=== PATIENT | male | born 1990 | race Caucasian/White ===

== ENCOUNTER 2017-04-29 18:32 | Emergency (ER) | payer OTHER ==
[~2017-04-29] VITALS: Ht 195.6 cm; Wt 127.3 kg
[2017-04-29 18:56] VITALS: BP 119/75; PULSE 106; RESP 30; O2SAT 98
--- NOTE | 2017-04-29 19:26 | ED.REPORT ---
HPI-General Illness Date of Service Apr 29, 2017 ED Provider: Candelario Solano MD Patient is an otherwise healthy 27 year old male who presents to the ED via EMS complaining of rectal pain onset 3 days ago. Associated symptoms include fever ( 101.6) and dizziness. He denies vomiting, abdominal pain, hematochezia, or any other symptoms. He was seen at the [facility] and given a cream with nitroglycerine but it has not been helping. They thought he might have an anal fissure. Nursing Notes Stated Complaint: RECTAL PAIN Chief Complaint: General Complaint Nursing Notes Reviewed: Yes Allergies: Coded Allergies: Penicillins (Verified Allergy, Unknown, 08/14/14) Sulfa (Sulfonamide Antibiotics) (Verified Allergy, Unknown, 08/14/14) TAPE (Verified Allergy, Unknown, 04/29/17) zolpidem (Verified Allergy, Unknown, hallucinations, 04/29/17) Uncoded Allergies: ANTIBIOTICS (Allergy, Unknown, 08/14/14) Scheduled Clindamycin (Clindamycin) 300 Mg Capsule 300 MG PO QID Scheduled PRN Docusate Sodium (Docusate Sodium) 250 Mg Capsule 250 MG PO BID PRN PRN For Constipation Hydrocodone-Acetaminophen 5-325 mg (Hydrocodone-Acetaminophen 5-325 mg) 1 Each Tablet 1 TABLET PO Q4H PRN PRN For Pain General Time Seen by MD: 19:11 Chief Complaint Other (Rectal pain ) Hx Obtained From: Patient Arrived By: Ambulance Sudden in Onset?: Yes Onset Occurred: 3 days ago Symptom Duration: Since onset Recent Healthcare: Recent doctor visit Past Medical History Past Medical History Denies Past Surgical History R shoulder x2 back Smoking History Unknown if Ever Smoker Social History Drug Use: Denies drug use Ambulatory Status Independent Review of Systems +rectal pain Full Review of Systems Constitutional: Reports: Fever GI: Denies: Abdominal pain, Hematochezia, Vomiting Neurologic: Reports: Dizziness Complete sys rev & neg: except as marked. Physical Exam Vital Signs Vital Signs Date Time Temp Pulse Resp B/P Pulse Ox O2 Delivery O2 Flow Rate FiO2 04/29/17 22:15 37.2 17 122/80 97 Room Air 04/29/17 21:09 38.2 102 16 133/76 97 Room Air 04/29/17 18:56 36.7 106 30 119/75 98 Room Air Initial VS: Reviewed Head / Eyes: Atraumatic, Normocephalic Neck: Full range of motion Respiratory: No respiratory distress Skin: Warm, Dry Neurologic: Alert, Oriented, Nonfocal Psychiatric: Mood/affect normal, Behavior normal, Normal thought content General/Constitutional: Awake, Alert, Well developed Distress / Hydration: Positive: Distress moderate Abdomen: Atraumatic, Soft, Non-tender Rectum / Perineum: No gross blood, No fissures, No mass No abscess or surrounding erythema Tender at 12 O'clock Interpretation & Diagnostics Lab Results Interpretation Result Diagram: 04/29/17195104/29/171951 Test 04/29/17 19:52 White Blood Count 15.7th/mm3 (3.8-10.1) Red Blood Count 5.39mil/mm3 (4.40-5.80) Hemoglobin 15.4g/dL (13.8-17.2) Hematocrit 44.8% (41.0-50.0) Mean Corpuscular Volume 83.1fL (81-100) Mean Corpuscular Hemoglobin 28.6pg (27.0-35.0) Mean Corpuscular Hemoglobin Concent 34.4% (32.0-37.0) Red Cell Distribution Width 13.3% (12.3-15.4) Platelet Count 233bil/L (150-400) Neutrophils (%) (Auto) 79.2% (40-74) Lymphocytes (%) (Auto) 11.9% (14-46) Monocytes (%) (Auto) 7.4% (4-12) Eosinophils (%) (Auto) 1.1% (0-5) Basophils (%) (Auto) 0.3% (0-3) Sodium Level 139mEq/L (134-144) Potassium Level 3.5mEq/L (3.5-5.2) Chloride Level 101mEq/L (97-108) Carbon Dioxide Level 21mmol/L (18-29) Blood Urea Nitrogen 9mg/dL (6-20) Creatinine 0.77mg/dL (0.76-1.27) Estimat Glomerular Filtration Rate 128mL/min (>59) Glucose Level 103mg/dL (60-99) Calcium Level 9.7mg/dL (8.5-10.1) Total Bilirubin 0.9mg/dL (0.0-1.2) Aspartate Amino Transf (AST/SGOT) 19U/L (0-50) Alanine Aminotransferase (ALT/SGPT) 23U/L (0-44) Alkaline Phosphatase 72U/L (25-150) Total Protein 7.5g/dL (6.4-8.4) Albumin 4.3g/dL (3.4-5.0) Hold Ferrell Top Tube Received (Received) Lab Results Interpretation: CT PELVIS W/ IV CONTRAST: IMPRESSION: 1. Subcutaneous fat stranding of the tissues at the gluteal crease and perianal region suggesting cellulitis. No fluid collection to suggest abscess or hematoma. No findings to suggest enterocutaneous fistula. However, if further characterization is warranted, contrast-enhanced MRI of the pelvis is recommended. Dictated by: Shy Fields M.D. on 04/29/2017 at 20:50 Approved by: Shy Fields M.D. on 04/29/2017 at 20:55 Re-Eval/Medical Decision Med Decision/Clinical Course 27-year-old male recently diagnosed with anal fissure presenting complaining of rectal pain. Reportedly with fever to 101 by paramedics. White blood cell count is elevated 15,000. Labs are otherwise stable. Hemodynamically stable. CT scan showed no evidence of abscess. He did have question of cellulitis on the CT scan. On exam I did not appreciate a clear anal fissure. There was very mild erythema at 12:00. He will be treated for anal fissure and cellulitis. He would like to go home. Discharged with clindamycin, stool softener and plans to take his medications prescribed for his anal fissure by his primary doctor.. Follow up with his primary doctor tomorrow. Return precautions given if any new or worsening pain, fevers, nausea vomiting. Time of Eval: 21:10 Re-Evaluation/Progress Note: Discussed plan for discharge. Patient understands and agrees with plan. All questions addressed at this time. Counseled Regarding: Diagnosis, Lab results, Need for follow-up, When/why to return to ED Discharge & Departure Primary Impression: Anal fissure Additional Impression: Cellulitis Site of cellulitis: buttock Qualified Code: L03.317 - Cellulitis of buttock Disposition: Home Discharge Condition All VS Reviewed: Yes Condition: Improved Patient Instructions: Anal Fissure (ED), Sitz Bath (GEN) Additional Instructions: Thank you for entrusting us with your care. We did not find evidence of an abscess at this time. Take a stool softener and pain medication as needed. Do not drink alcohol or drive while taking this pain medication. Take fiber as well. Take Clindamycin as directed. Soak in a hot bath several times daily. Call GI tomorrow to schedule a follow up appointment. Follow up with your primary doctor tomorrow. Return to the emergency department if you experience fevers, swelling, or any other symptoms. Referrals: OTHER,PHYSICIAN (PCP) (Family) Scribe Attestation Portions of this note were transcribed by Beto Camacho. I, Dr. Solano personally performed the history, physical exam and medical decision-making; I reviewed and confirmed the accuracy of the information in the transcribed note. Signed by: Beto Camacho 04/29/17, 2154 Candelario Solano MD Apr 29, 2017 19:26 BETO CAMACHO Apr 29, 2017 19:34
[2017-04-29] MEDS ORDERED: 0.9% Sodium Chloride 1,000 ML IV ONE (19:34)
[2017-04-29] MEDS ORDERED: Ondansetron 2 mg/mL 2 mL Inj IVPUSH PRN (19:35)
[2017-04-29 20:02] LABS: BASOPHILS % (AUTO) 0.3 % (0-3); EOSINOPHILS % (AUTO) 1.1 % (0-5); MONOCYTES % (AUTO) 7.4 % (4-12); Mean Corpuscular Hemoglobin 28.6 pg (27.0-35.0); Mean Corpuscular Volume 83.1 fL (81-100); NEUTROPHILS % (AUTO) 79.2 % (40-74); Platelet Count 233 bil/L (150-400)
--- NOTE | 2017-04-29 20:57 | DRSVH ---
PROCEDURE: CT PELVIS WITH CONTRAST ([id number]) INDICATIONS: rectal pain, fever TECHNIQUE: After the administration of intravenous contrast, 5 mm thick sections acquired from the iliac crests to the symphysis. 5 mm coronal and sagittal reformats were acquired. For radiation dose reduction, the following was used: automated exposure control, adjustment of mA and/or kV according to patient size. COMPARISON: None. FINDINGS: Image quality: Excellent. Peritoneum and bowel: Bowel loops demonstrate normal wall thickness and caliber. No free fluid or a ir. Genitourinary: Bladder wall thickness is normal. Nodes and vessels: No iliac, pelvic, or inguinal adenopathy by size criteria. Iliac vessels demonst rate normal size and enhancement. Bones: No suspicious bony lesions. Miscellaneous: There is a moderate amount of fat stranding within the subcutaneous tissues around the gluteal crease. There is no discrete fluid collection to suggest abscess amenable to drainage. IMPRESSION: 1. Subcutaneous fat stranding of the tissues at the gluteal crease and perianal region suggesting oseas lulitis. No fluid collection to suggest abscess or hematoma. No findings to suggest enterocutaneous f istula. However, if further characterization is warranted, contrast-enhanced MRI of the pelvis is rec ommended. Dictated by: Shy Fields M.D. on 04/29/2017 at 20:50 Approved by: Shy Fields M.D. on 04/29/2017 at 20:55
[2017-04-29 21:09] VITALS: BP 133/76; PULSE 102; RESP 16; O2SAT 97
[2017-04-29] MEDS ORDERED: HYDR-4003 PO (21:15)
[2017-04-29] MEDS ORDERED: CLIN-78 PO (21:15)
[2017-04-29] MEDS ORDERED: DOCU250C2 PO (21:15)
[2017-04-29 22:15] VITALS: BP 122/80; RESP 17; O2SAT 97
== END 2017-04-29 22:45 | disposition home or self-care (01) ==
LOC: SED 18:32
DX: K60.2 Anal fissure, unspecified (principal); L03.317 Cellulitis of buttock; R50.9 Fever, unspecified; R42 Dizziness and giddiness; Z88.0 Allergy status to penicillin; Z88.2 Allergy status to sulfonamides; Z88.8 Allergy status to other drugs, medicaments and biological substances
CPT/HCPCS: 36415; 72193; 80053; 85025; 96361; 96374; 96375; 99284; J2270; J2405; J7030; Q9967